=== PATIENT | male | born 1985 | race Caucasian/White ===

== ENCOUNTER 2018-03-10 23:49 | Emergency (ER) | payer SELFPAY ==
[~2018-03-10 23:49] MED LIST: Sodium Chloride 0.9% 1,000 ML BAG ONE
[2018-03-11] MEDS ORDERED: Ondansetron HCl/PF 4 MG/2 ML Vial ONE (00:13)
[2018-03-11] MEDS ORDERED: Famotidine In NaCl 20 mg/50 ml Premix Bag ONE (00:13)
[2018-03-11 00:26] LABS: Bilirubin Negative (Negative); Blood, Urine Negative (Negative); Clarity Clear (Clear); Glucose, Urine (Dipstick) Negative (Negative); Leukocyte Negative (Negative); Nitrite Negative (Negative); Protein, Urine (Dipstick) Negative (Neg-Trace); Specific Gravity, Urine 1.015 (1.005-1.030); Urobilinogen 0.2 mg/dL (0.2-1.0)
[2018-03-11 00:47] LABS: #Basophils 0.2 thou/uL (0.0-0.2); #Eosinphils 0.1 thou/uL (0.0-0.7); #Lymphocytes 2.7 thou/uL (1.20-3.40); #Monocytes 1.2 thou/uL (0.11-0.59); #Neutrophils 8.3 thou/uL (1.40-6.50); %Basophils 1.2 % (0.0-1.0); %Lymphocytes 21.8 % (21.0-51.0); %Monocytes 9.5 % (0.0-10.0); %Neutrophils 66.5 % (42.0-75.0); Hemoglobin 16.5 g/dL (14.0-18.0); Mean Corpuscular HGB CONC 34.8 g/dL (32.0-36.0); Mean Corpuscular Hemoglobin 31.7 pg (27.0-31.0); Mean Corpuscular Volume 90.9 fL (78.0-98.0); Mean Platelet Volume 7.2 fL (7.4-10.4); Platelet Count 228 thou/uL (130-400); RBC Distribution Width 11.4 % (11.5-14.5); White Blood Cell (WBC) Count 12.4 thou/uL (4.8-10.8)
[2018-03-11 00:52] LABS: Potassium 5.2 mmol/L (3.5-5.1)
[2018-03-11 01:00] LABS: BUN (Urea Nitrogen) 5 mg/dL (8.9-20.6); Calc. Creatinine Clearance 0 mL/min (70-130); Calcium 9.8 mg/dL (7.8-10.44); Carbon Dioxide 25 mmol/L (22-29); Chloride 103 mmol/L (98-107); Estimated GFR-MDRD Greater than 90; Glucose 99 mg/dL (70-105); Sodium 140 mmol/L (136-145)
[2018-03-11 01:25] LABS: Amphetamine Not Detected (NotDetected); Barbiturates Screen Not Detected (NotDetected); Benzodiazepine Screen Not Detected (NotDetected); Cocaine Metabolite Screen Not Detected (NotDetected); Medtox Control Line Valid? VALID (VALID); Methadone Not Detected (NotDetected); Methamphetamine Not Detected (NotDetected); Opiate Screen Not Detected (NotDetected); Oxycodone Screen Not Detected (NotDetected); Phencyclidine (PCP) Not Detected (NotDetected); THC/Cannabinoid Screen Detected (NotDetected); Tricyclic Screen Not Detected (NotDetected)
[2018-03-11 01:29] LABS: Anion Gap 15 mmol/L (10-20)
== END 2018-03-11 01:27 | disposition home or self-care (01) ==
LOC: MADERS 23:49
DX: R11.2 Nausea with vomiting, unspecified (principal); F31.9 Bipolar disorder, unspecified; F41.9 Anxiety disorder, unspecified; F17.210 Nicotine dependence, cigarettes, uncomplicated
CPT/HCPCS: 80048; 80306; 81003; 82150; 85025; 96365; 96375; J2405; J7050

== ENCOUNTER 2018-09-15 13:03 | Emergency (ER) | payer SELFPAY | END 2018-09-15 14:10 | disposition home or self-care (01) | LOC: MADERS 13:03 | DX: J11.1 Influenza due to unidentified influenza virus with other respiratory manifestations (principal); F41.9 Anxiety disorder, unspecified; F31.9 Bipolar disorder, unspecified; F17.210 Nicotine dependence, cigarettes, uncomplicated | CPT/HCPCS: 99283 ==

== ENCOUNTER 2021-03-30 13:13 | Emergency (ER) | payer SELFPAY ==
[2021-03-31 11:55] LABS: SARS-CoV-2 PCR by NAA Not Detected (NotDetected)
== END 2021-03-30 14:30 | disposition home or self-care (01) ==
LOC: MADERS 13:13
DX: J06.9 Acute upper respiratory infection, unspecified (principal); F17.210 Nicotine dependence, cigarettes, uncomplicated; Z20.822 Contact with and (suspected) exposure to COVID-19
CPT/HCPCS: 99283; U0003; U0005

== ENCOUNTER 2024-05-13 16:23 | Emergency (ER) | payer SELFPAY ==
[2024-05-13] MEDS ORDERED: predniSONE 20 MG TAB ONE ×2 (16:55→16:57)
[2024-05-13] MEDS ORDERED: Ipratropium/Albuterol 3 ML NEB ONE (16:55)
== END 2024-05-13 17:43 | disposition home or self-care (01) ==
LOC: MADERS 16:23
DX: J20.9 Acute bronchitis, unspecified (principal); B34.9 Viral infection, unspecified; F17.290 Nicotine dependence, other tobacco product, uncomplicated; F17.210 Nicotine dependence, cigarettes, uncomplicated
CPT/HCPCS: J7512; J7620